=== PATIENT | female | born 1960 | race Caucasian/White ===

== ENCOUNTER → 2023-08-02 16:48 | Outpatient (REF) | payer OTHER, SELFPAY | LOC: PAVMRI 16:48 | PROVIDERS: ATTENDING PHYSICIAN Physician Assistant Medical | DX: M54.9 Dorsalgia, unspecified (principal) | CPT/HCPCS: 72146 ==

== ENCOUNTER → 2023-08-17 17:09 | Outpatient (REF) | payer OTHER, SELFPAY | LOC: MRI 17:09 | PROVIDERS: ATTENDING PHYSICIAN Physician Assistant Medical | DX: Q06.4 Hydromyelia (principal) | CPT/HCPCS: 72157; A9575 ==

== ENCOUNTER → 2023-09-05 16:28 | Outpatient (REF) | payer OTHER, SELFPAY | LOC: MRI 3T 16:28 | PROVIDERS: ATTENDING PHYSICIAN Physician Assistant Medical; FAMILY PHYSICIAN Neurological Surgery | DX: G95.89 Other specified diseases of spinal cord (principal); M54.2 Cervicalgia | CPT/HCPCS: 72156; A9575 ==

== ENCOUNTER → 2024-07-29 15:38 | Outpatient (REF) | payer OTHER, SELFPAY | LOC: WDC 15:38 | PROVIDERS: ATTENDING PHYSICIAN Obstetrics & Gynecology; FAMILY PHYSICIAN Physician Assistant Medical | DX: Z12.31 Encounter for screening mammogram for malignant neoplasm of breast (principal) | CPT/HCPCS: 77063; 77067 ==

== ENCOUNTER → 2024-08-04 14:19 | Outpatient (REF) | payer OTHER, SELFPAY | LOC: RAD 14:19 | PROVIDERS: ATTENDING PHYSICIAN Podiatrist Foot Surgery | DX: G57.61 Lesion of plantar nerve, right lower limb (principal); M19.071 Primary osteoarthritis, right ankle and foot; M20.12 Hallux valgus (acquired), left foot | CPT/HCPCS: 73630 ==

== ENCOUNTER → 2024-08-11 10:27 | Outpatient (REF) | payer OTHER, SELFPAY | LOC: RAD 10:27 | PROVIDERS: ATTENDING PHYSICIAN Internal Medicine; FAMILY PHYSICIAN Physician Assistant Medical | DX: M81.0 Age-related osteoporosis without current pathological fracture (principal); Z51.81 Encounter for therapeutic drug level monitoring | CPT/HCPCS: 77080 ==

== ENCOUNTER 2024-12-24 13:08 | Outpatient (RCR) | payer OTHER, SELFPAY | END 2024-12-24 23:59 | disposition home or self-care (01) | LOC: RPT 13:08 | PROVIDERS: ATTENDING PHYSICIAN Physician Assistant Medical | DX: M54.89 Other dorsalgia (principal); Z73.6 Limitation of activities due to disability; M41.9 Scoliosis, unspecified; M81.0 Age-related osteoporosis without current pathological fracture; M25.511 Pain in right shoulder | CPT/HCPCS: 97110; 97112; 97140; 97162 ==